=== PATIENT | female | born 1985 | race African-American/Black ===

== ENCOUNTER 2023-11-23 03:14 | Observation (INO) | payer OTHER ==
[2023-11-23] MEDS ORDERED: Acetaminophen 325 MG TAB PO PRN (04:12)
[2023-11-23] MEDS ORDERED: Ondansetron ODT 4 MG TAB PO PRN (04:12)
[2023-11-23] MEDS ORDERED: Ondansetron PF 4 MG/2 ML Vial IVP PRN (04:12)
[2023-11-23] MEDS ORDERED: Acetaminophen 650 MG Suppository PR PRN (04:12)
[2023-11-23 04:17] VITALS: BMI 27.3
[2023-11-23 05:00] LABS: Hematocrit 33.5 % (36.0-47.0); Hemoglobin 11.4 g/dL (12.0-16.0); Manual Diff?? YES; Mean Corpuscular Hemoglobin 30.7 pg (27.0-31.0); Mean Corpuscular Volume 90.3 fl (78.0-98.0); Mean Platelet Volume 10.6 fL (7.4-10.4); Platelet Count 244 10x3/uL (130-400); RBC Distribution Width 16.1 % (11.5-14.5); Red Blood Cell (RBC) Count 3.71 mill/uL (4.20-5.40); White Blood Cell (WBC) Count 5.4 10x3/uL (4.8-10.8)
[2023-11-23] MEDS: Sodium Chloride 0.9% 1,000 ML IV SCH ×2 (05:01→15:05)
[2023-11-23 05:03] LABS: Delete Auto Diff?? YES
[2023-11-23 05:22] LABS: Anion Gap 12 mmol/L (10-20); BUN (Urea Nitrogen) 7 mg/dL (7.0-18.7); Calc. Creatinine Clearance 157 mL/min (70-130); Calcium 8.1 mg/dL (7.8-10.44); Carbon Dioxide 24 mmol/L (22-29); Chloride 101 mmol/L (98-107); Estimated GFR 118; Glucose 90 mg/dL (70-105); Potassium 3.4 mmol/L (3.5-5.1); Sodium 134 mmol/L (136-145)
[2023-11-23 06:37] LABS: Eosinophils 3 % (0-10); Lymphocytes 42 % (21-51); Monocytes 10 % (0-10); Neutrophil 45 % (42-75); Platelet Adequacy Comment Appears Adequate
[2023-11-23] MEDS ORDERED: Famotidine 20 MG TAB PO SCH (09:00)
[2023-11-23] MEDS ORDERED: Enoxaparin 40 MG (0.4 mL) SYRINGE SC SCH (09:00)
[2023-11-23] MEDS ORDERED: Cefepime 2 GM in Sodium Chloride 0.9% 100 ML IVPB SCH (09:00)
[2023-11-23 15:44] VITALS: BP 96/62; TEMP 98.3
[2023-11-23] MEDS ORDERED: Potassium Chloride 20 MEQ TAB PO SCH (15:45)
== END 2023-11-23 16:31 | disposition left against medical advice (07) ==
LOC: T4-A 03:14
PROVIDERS: ADMIT Student in an Organized Health Care Education/Training Program; ATTEND Student in an Organized Health Care Education/Training Program
DX: N39.0 Urinary tract infection, site not specified (principal); K76.9 Liver disease, unspecified; G82.20 Paraplegia, unspecified; Z20.822 Contact with and (suspected) exposure to COVID-19
CPT/HCPCS: 36415; 76770; 80048; 85025; 96365; 96372; G0378; J0692; J1650; J3490; J7050